=== PATIENT | female | born 1945 | race Two or more races ===

== ENCOUNTER 2022-01-27 07:23 | Emergency (ER) | payer MEDICARE, OTHER ==
[~2022-01-27] VITALS: Ht 165.1 cm; Wt 103.9 kg
--- NOTE | 2022-01-27 07:40 | NUR ---
RECEIVED PT 76 YRS FEMALE C/O GENRALIZED WEEKNESS CAME BY JESS FROM HOME AWAKE AND ALERT
--- NOTE | 2022-01-27 07:45 | NUR ---
SEEN BY DR.BUFAND JENNINGS WITH PT
--- NOTE | 2022-01-27 08:00 | NUR ---
INSERTED ROLAND # 18 ON LT AC BLOOD DROW AND SENT TO LAB
[2022-01-27 08:14] LABS: BASOPHILS # (AUTO) 0.1 K/uL (0.0-0.2); BASOPHILS % (AUTO) 0.7 % (0.0-2.0); EOSINOPHILS % (AUTO) 1.5 % (0.0-6.0); HEMATOCRIT 37 % (33-45); HEMOGLOBIN 11.9 g/dL (11.5-14.8); LYMPHOCYTES # (AUTO) 1.9 K/uL (0.8-4.8); LYMPHOCYTES % (AUTO) 20.6 % (20.0-44.0); MEAN CORPUSCULAR HGB CONC 32 g/dl (31.0-36.0); MEAN CORPUSCULAR VOLUME 86 fL (82-100); MONOCYTES # (AUTO) 0.7 K/uL (0.1-1.30); MONOCYTES % (AUTO) 7.5 % (2.0-12.0); NEUTROPHILS # (AUTO) 6.5 K/uL (1.8-8.9); NEUTROPHILS % (AUTO) 69.7 % (43.0-81.0); PLATELET COUNT (AUTO) 274 K/uL (150-450); RED BLOOD CELL COUNT(AUTO) 4.32 MIL/uL (4.0-5.2); WHITE BLOOD COUNT (AUTO) 9.3 K/uL (4.3-11.0)
--- NOTE | 2022-01-27 08:19 | NUR ---
CXRAY DONE AT BED SIDE
--- NOTE | 2022-01-27 08:30 | NUR ---
CAMILLE CORREIA SEND TO LAB UA SNT TO LAB
[2022-01-27] MEDS: FAMOTIDINE/PF INJ 20 MG/2 ML VIAL IV ONE (08:42)
[2022-01-27] MEDS: ASPIRIN EC 325 MG TABLET.DR PO ONE (08:43)
[2022-01-27 08:45] LABS: ALANINE AMINOTRANSFERASE 29 U/L (12-78); ALBUMIN 3.1 g/dL (3.4-5.0); ALKALINE PHOSPHATASE 68 U/L (46-116); BILIRUBIN,DIRECT 0.1 mg/dL (0.0-0.2); BILIRUBIN,TOTAL 0.3 mg/dL (0.2-1.0); TOTAL PROTEIN, SERUM 7.5 g/dL (6.4-8.2)
[2022-01-27 08:49] LABS: BILIRUBIN,URINE NEGATIVE (NEGATIVE); COLOR,URINE YELLOW (YELLOW); LEUKOCYTE ESTERASE ,URINE NEGATIVE (NEGATIVE); NITRITE, URINE NEGATIVE (NEGATIVE); PH,URINE 5.5 (5.0-8.0); PROTEIN,URINE NEGATIVE (NEGATIVE); UGLUCOSE NEGATIVE (NEGATIVE); UROBILINOGEN,URINE 0.2 EU/dL (0.2)
--- NOTE | 2022-01-27 09:00 | NUR ---
PH CONDITION STABLE
[2022-01-27 09:11] LABS: ASPARTATE AMINOTRANSFERASE 15 U/L (15-37)
--- NOTE | 2022-01-27 10:16 | NUR ---
SARMAD FOR LAB RESULT
--- NOTE | 2022-01-27 10:24 | NUR ---
PT REFUSED TO BE ADMITE IN HOSPITAL DR. MIRANDA AT BED SIDE EXPLAND TO PT AND ELSA PT AND ELSA SING AMA FORM BY ELSA
[2022-01-27 10:46] LABS: CREATININE 0.7 mg/dL (0.6-1.3); POTASSIUM 3.8 mmol/L (3.5-5.1)
--- NOTE | 2022-01-27 11:03 | NUR ---
D/C INSTRACTION GIVEN TO PT FULLY AND VERBLIZED UM STOOD D/C HOME WITH [facility] PT REFUSED TO BY ADMITED TO HOSPITA L
[2022-01-27 11:14] VITALS: BP 124/80
== END 2022-01-27 11:18 | disposition left against medical advice (07) ==
LOC: ER 07:25
DX: R07.9 Chest pain, unspecified (principal); R53.1 Weakness; Z20.822 Contact with and (suspected) exposure to COVID-19; R94.31 Abnormal electrocardiogram [ECG] [EKG]; Z53.29 Procedure and treatment not carried out because of patient's decision for other reasons; E11.9 Type 2 diabetes mellitus without complications; I10 Essential (primary) hypertension
CPT/HCPCS: 36415; 71045-TC; 80048-TC; 80076-TC; 84484-TC; 85025-TC; C9803

== ENCOUNTER 2025-02-08 16:39 | Inpatient (IN) | payer MEDICARE, OTHER ==
[~2025-02-08] VITALS: Ht 154.9 cm; Wt 92.5 kg
[2025-02-08] MEDS ORDERED: SITA1TAB6 PO (17:54)
[2025-02-08] MEDS ORDERED: GLIM1TAB18 PO (17:54)
[2025-02-08] MEDS ORDERED: EMPA25TA PO (17:54)
[2025-02-08] MEDS ORDERED: DULO20CA PO (17:54)
[2025-02-08] MEDS ORDERED: OLME1TAB26 PO (17:54)
[2025-02-08] MEDS ORDERED: METO25TA3 PO (17:54)
[2025-02-08 18:14] LABS: PLATELET COUNT (AUTO) 300 K/uL (150-450); RED BLOOD CELL COUNT(AUTO) 4.59 MIL/uL (4.0-5.2); RED CELL DISTRIBUTION WIDTH 15.9 % (11.5-15.0); WHITE BLOOD COUNT (AUTO) 8.6 K/uL (4.3-11.0)
[2025-02-08 18:17] LABS: INR 0.98 (0.91-1.10)
[2025-02-08 18:18] LABS: CALCIUM, SERUM 9.3 mg/dL (8.5-10.1); CREATININE 1.0 mg/dL (0.6-1.3); SODIUM SERUM 137 mmol/L (136-145); UREA NITROGEN, BLOOD 19 mg/dL (7-18)
[2025-02-08 18:21] LABS: LACTIC ACID 2.5 mmol/L (0.4-2.0)
[2025-02-08 18:29] LABS: ALCOHOL, BLOOD < 3 mg/dL (0-10); ASPARTATE AMINOTRANSFERASE 16 U/L (15-37); TOTAL PROTEIN, SERUM 7.3 g/dL (6.4-8.2)
[2025-02-08] MEDS ORDERED: IOHEXOL-350 100 ML VIAL IV ONE (18:35)
[2025-02-08] MEDS ORDERED: IV NS 0.9% 250 ML IV ONE (18:36)
[2025-02-08 18:59] LABS: APPEARANCE,URINE CLEAR (CLEAR); BLOOD, URINE NEGATIVE Ery/uL (NEGATIVE); LEUKOCYTE ESTERASE ,URINE NEGATIVE (NEGATIVE); NITRITE, URINE NEGATIVE (NEGATIVE); UGLUCOSE 3+ mg/dL (NEGATIVE)
[2025-02-08 19:06] LABS: ADD URINE CULTURE NO; SQUAMOUS EPITHELIAL CELL,UR Moderate /HPF (None Seen)
[2025-02-08 19:07] LABS: AMPHETAMINE, URINE NEGATIVE (NEGATIVE); BARBITURATE, URINE NEGATIVE (NEGATIVE); BENZODIAZEPINE, URINE NEGATIVE (NEGATIVE); CANNABINOID, URINE NEGATIVE (NEGATIVE); COCCAINE, URINE NEGATIVE (NEGATIVE); OPIATE, URINE NEGATIVE (NEGATIVE)
[2025-02-08] MEDS ORDERED: ACETAMINOPHEN 325 MG TABLET PO PRN (21:00)
[2025-02-08] MEDS ORDERED: MAGNESIUM HYDROXIDE 30 ML UDC PO PRN (21:00)
[2025-02-08] MEDS ORDERED: ONDANSETRON HCL/PF 4 MG/2 ML VIAL IVP PRN (21:00)
[2025-02-08] MEDS ORDERED: Z GUARD REMEDY 4 OZ OINT TP PRN (21:00)
[2025-02-08] MEDS ORDERED: MAG HYDROX/AL HYDROX/SIMETH 30 ML UDC PO PRN (21:00)
[2025-02-08 21:20] VITALS: BP 132/69; TEMP 97.3; O2SAT 96
[2025-02-08] MEDS ORDERED: DEXTROSE 50%-WATER 50 ML DISP.SYRIN IV PRN (21:30)
[2025-02-08] MEDS: BLOOD SUGAR DIAGNOSTIC 1 EACH STRIP IN SCH (22:00)
[2025-02-08] MEDS: ASPIRIN 325 MG TABLET PO ONE (22:15)
[2025-02-08 22:35] VITALS: BP 132/69; TEMP 97.3; O2SAT 96
[2025-02-08] MEDS: ENOXAPARIN SODIUM 40 MG/0.4 ML DISP.SYRIN SQ SCH (23:25)
[2025-02-08 23:36] LABS: ASPARTATE AMINOTRANSFERASE 13 U/L (15-37); CALCIUM, SERUM 9.0 mg/dL (8.5-10.1); CREATININE 0.7 mg/dL (0.6-1.3); SODIUM SERUM 137 mmol/L (136-145); TOTAL PROTEIN, SERUM 7.0 g/dL (6.4-8.2); UREA NITROGEN, BLOOD 18 mg/dL (7-18)
[2025-02-08 23:41] LABS: LDL 125 mg/dL (0-99)
[2025-02-09] VITALS (7 sets, daily range): BP systolic 125–137; BP diastolic 60–78; TEMP 97.7–99; O2SAT 94–97
[2025-02-09] MEDS ORDERED: BLOOD SUGAR DIAGNOSTIC 1 EACH STRIP IN SCH
[2025-02-09 07:23] LABS: PLATELET COUNT (AUTO) 314 K/uL (150-450); RED BLOOD CELL COUNT(AUTO) 4.66 MIL/uL (4.0-5.2); RED CELL DISTRIBUTION WIDTH 16.1 % (11.5-15.0); WHITE BLOOD COUNT (AUTO) 7.5 K/uL (4.3-11.0)
[2025-02-09 07:47] LABS: CALCIUM, SERUM 9.2 mg/dL (8.5-10.1); CREATININE 0.7 mg/dL (0.6-1.3); SODIUM SERUM 142.0 mmol/L (136-145); UREA NITROGEN, BLOOD 15.0 mg/dL (7-18)
[2025-02-09] MEDS: PANTOPRAZOLE 40 MG TABLET.DR PO SCH (08:30)
[2025-02-09] MEDS: ASPIRIN 81 MG TAB.CHEW PO SCH (08:31)
[2025-02-09] MEDS: AMOX/CLAVULANATE 875 MG TABLET PO SCH (08:40)
[2025-02-09] MEDS ORDERED: EMPAGLIFLOZIN 25 MG TABLET PO SCH (09:00)
[2025-02-09] MEDS: INSULIN REGULAR, HUMAN 100 UNIT/ML 3 ML VIAL SQ PRN (11:49)
[2025-02-09] MEDS: ENOXAPARIN SODIUM 40 MG/0.4 ML DISP.SYRIN SQ SCH (19:32)
[2025-02-09] MEDS: ATORVASTATIN 40 MG TABLET PO SCH (21:16)
[2025-02-09] MEDS ORDERED: CYANOCOBALAMIN 1,000 MCG/ML VIAL IM STA (23:31)
[2025-02-10] VITALS: BP 119/60; TEMP 97.3; O2SAT 95
[2025-02-10] MEDS: CYANOCOBALAMIN 500 MCG TABLET PO STA (00:03)
[2025-02-10 04:00] VITALS: BP 159/75; TEMP 97.7; O2SAT 95
[2025-02-10 07:00] LABS: PLATELET COUNT (AUTO) 316 K/uL (150-450); RED BLOOD CELL COUNT(AUTO) 4.72 MIL/uL (4.0-5.2); RED CELL DISTRIBUTION WIDTH 16.3 % (11.5-15.0); WHITE BLOOD COUNT (AUTO) 7.1 K/uL (4.3-11.0)
[2025-02-10 07:11] LABS: CALCIUM, SERUM 9.2 mg/dL (8.5-10.1); CREATININE 0.8 mg/dL (0.6-1.3); PHOSPHORUS 4.1 mg/dL (2.5-4.9); SODIUM SERUM 140.0 mmol/L (136-145); UREA NITROGEN, BLOOD 16.0 mg/dL (7-18)
[2025-02-10 08:00] VITALS: BP 145/63; TEMP 97.7; O2SAT 96
[2025-02-10] MEDS: FOLIC ACID 1 MG TABLET PO SCH (08:37)
[2025-02-10] MEDS: CYANOCOBALAMIN 1,000 MCG/ML VIAL IM SCH (08:38)
[2025-02-10] MEDS: METOPROLOL TARTRATE 25 MG TABLET PO SCH (09:39)
[2025-02-10 12:00] VITALS: BP 120/56; TEMP 97.7; O2SAT 95
[2025-02-10] MEDS ORDERED: AMOX-430 PO (12:31)
[2025-02-10] MEDS ORDERED: MECO10005 PO (12:31)
[2025-02-10] MEDS ORDERED: ASPI-1420 PO (12:31)
[2025-02-10] MEDS ORDERED: ATOR40TA PO (12:31)
[2025-02-10] MEDS ORDERED: CYANOCOBALAMIN 1,000 MCG/ML VIAL IM SCH (23:00)
[2025-02-12 01:07] LABS: FOLIC ACID 13.6 ng/mL (>3.0)
== END 2025-02-10 15:59 | disposition home or self-care (01) | DRG 69 ==
LOC: ER 16:44 → TELE 19:41
PROVIDERS: ADMIT Registered Nurse Psychiatric/Mental Health; ATTEND Registered Nurse Psychiatric/Mental Health
DX: G45.9 Transient cerebral ischemic attack, unspecified (principal); E44.1 Mild protein-calorie malnutrition; E87.20 Acidosis, unspecified; I47.10 Supraventricular tachycardia, unspecified; R47.01 Aphasia; J32.0 Chronic maxillary sinusitis; I25.10 Atherosclerotic heart disease of native coronary artery without angina pectoris; R55 Syncope and collapse; E88.09 Other disorders of plasma-protein metabolism, not elsewhere classified; E11.65 Type 2 diabetes mellitus with hyperglycemia; F41.9 Anxiety disorder, unspecified; F32.A Depression, unspecified; Z90.49 Acquired absence of other specified parts of digestive tract; Z79.84 Long term (current) use of oral hypoglycemic drugs; Z79.899 Other long term (current) drug therapy; J34.89 Other specified disorders of nose and nasal sinuses; I35.0 Nonrheumatic aortic (valve) stenosis; R53.1 Weakness; R79.89 Other specified abnormal findings of blood chemistry; I10 Essential (primary) hypertension; Z79.82 Long term (current) use of aspirin
CPT/HCPCS: 36415; 70496-TC; 70498-TC; 71045-TC; 72131-TC; 80048-TC; 80053-TC; 80061-TC; 80076-TC; 81001; 82607-TC; 82962-TC; 83605-TC; 83735-TC; 83921; 84100-TC; 84425; 84443-TC; 84484-TC; 85025-TC; 85652-TC; 85730-TC; 87040-TC; 87086-TC; 93307-TC; 97110-TC; 97116-TC; 97530-TC; 97535-TC; G0378; G0480; J1650; J1815; J3420; J7050; Q9967